=== PATIENT | female | born 1955 | race Caucasian/White ===

== ENCOUNTER 2022-01-10 10:12 | Emergency (ER) | payer MEDICARE, OTHER, SELFPAY ==
--- NOTE | ~2022-01-10 | CT_ITS ---
EXAMINATION: CT BRAIN W/O DATE: 01/10/2022 11:54 INDICATION: Dizziness TECHNIQUE: Computed tomography (CT) of the head was performed without intravenous contrast. The dose- length product was 605.33 mGy-cm. Automated exposure control and iterative reconstruction technique w ere employed. COMPARISON: No prior studies for comparison. FINDINGS: Normal brain parenchymal volume for age. Normal hartman-white differentiation. No acute intrac ranial hemorrhage, infarction, mass or mass effect. No ventriculomegaly or midline shift. Midline sagittal images demonstrate a normal corpus callosum, c raniovertebral junction and sella turcica. Basilar cisterns are patent. Paranasal sinuses and mastoids are pneumatized. No depressed skull fractures. There is intracranial a therosclerosis. IMPRESSION: 1. No acute intracranial abnormality. Reviewed, dictated and finalized at location A.
--- NOTE | 2022-01-10 10:25 | ECG_ITS ---
Measurements Intervals [place] Rate: 74 P: -48 CT: 155 QRS: 48 QRSD: 85 T: 31 QT: 408 QTc: 454 Interpretive Statements ECTOPIC ATRIAL RHYTHM BORDERLINE T WAVE ABNORMALITY- ANT/INF LEADS BASELINE ARTIFACT- I, II, III, AVL, AVF ABNORMAL ECG Electronically Signed On 01-10-2022 14:14:14 CDT by Khalif Rob D.O.
[2022-01-10 10:33] VITALS: BP 126/79; PULSE 65; RESP 18; TEMP 36.6; O2SAT 100
[2022-01-10 10:37] LABS: Basophils Absolute Auto 0.1 K/mm3 (0.0-0.1); Eosinophils Absolute Auto 0.1 K/mm3 (0-0.3); Eosinophils Percent Auto 1.4 % (0-4.4); Immature Granulocyte Absolute 0.07 K/mm3 (0.00-0.031); Immature Granulocyte Percent A 0.8 % (0-0.5); Lymphocytes Absolute Auto 3.04 K/mm3 (0.9-3.2); Lymphocytes Percent Auto 33.6 % (18.3-44.2); Mean Corpuscular HGB Conc 34.1 g/dl (32-36); Mean Corpuscular Volume 96.7 fl (80-100); Mean Platelet Volume 9.9 fl (7.4-10.4); Monocytes Absolute Auto 0.9 K/mm3 (0.1-0.6); Monocytes Percent Auto 9.5 % (2.6-8.5); Neutrophils Absolute Auto 4.9 K/mm3 (1.3-6.7); Neutrophils Percent Auto 53.7 % (45.5-73.1); Platelet Count Result 283 k/mm3 (150-375); Red Blood Count 4.55 M/mm3 (4.2-5.4); Red Cell Distribution Width 12.4 % (11.5-14.5); White Blood Count 9.1 K/mm3 (4.5-10.0)
--- NOTE | 2022-01-10 10:49 | ED.DIZZY ---
HPI - Dizziness General Chief Complaint: Dizziness Stated Complaint: dizziness Time Seen by Provider: 01/10/22 10:29 Source: patient Mode of arrival: ambulatory Limitations: no limitations History of Present Illness HPI Narrative: Patient is a 66-year-old female who presents to the ED with report of dizziness. Patient reports she was getting ready to go on a bike ride approximately 45 minutes ago when she suddenly developed room spinning dizziness. She states she became very nauseous and began vomiting with the dizziness. She felt very off balance at that time and decided to come to the ED. She states over the last couple weeks she has been having intermittent dizzy spells, but nothing like this. She has had intermittent pain in her left ear and was seen in urgent care and told it was fluid behind her ear. She has been taking Claritin for this, but still reports having intermittent pain in her left ear. No pain in right ear. No headache, blurry vision, double vision, hematemesis, abdominal pain, chest pain, difficulty breathing, fever, chills, cough, cold symptoms, urinary symptoms, focal weakness. Related Data Allergies Allergy/AdvReac Type Severity Reaction Status Date / Time carbamazepine [From Tegretol] AdvReac Rash Verified 01/10/22 10:39 NSAIDS (Non-Steroidal AdvReac Other Verified 01/10/22 10:39 Anti-Inflamma Intysni-VND-TaV Reductase AdvReac Muscle Pain Verified 01/10/22 10:39 Inhibitor Review of Systems Review of Systems: CONSTITUTIONAL: Denies fever, chills, or sweats. EYES: Denies visual changes. ENT: Reports left otalgia. Denies rhinorrhea, congestion, sore throat. CARDIOVASCULAR: Denies chest pain, palpitations, or edema. RESPIRATORY: Denies cough or dyspnea. GASTROINTESTINAL: Reports nausea and vomiting. Denies abdominal pain, hematemesis, or diarrhea. GENITOURINARY: Denies dysuria or hematuria. MUSCULOSKELETAL: Denies back pain, joint pain, or myalgia. NEUROLOGIC: Reports room spinning dizziness. Denies headache, numbness, or focal weakness. All systems reviewed & are unremarkable except as noted in HPI and below PMFSH Past Medical History Medical History (Updated 01/11/22 @ 00:00 by Anders Johns) Atopic dermatitis Hypercholesterolemia Hypertension Pacemaker Surgical History Surgical History (Updated 01/10/22 @ 18:29 by Kennedi Roblero PA-C) History of permanent cardiac pacemaker placement Social History Social History (Updated 01/10/22 @ 10:53 by Kennedi Roblero PA-C) Smoking status: Never smoker Exam Narrative: GENERAL: Mildly ill appearing, well-nourished, non-toxic, in mild acute distress. HEAD: Normocephalic, atraumatic. EYES: PERRL/EOMI, conjunctivae clear bilaterally. Left-sided nystagmus. NOSE: Normal, no drainage. EARS: Left TM clear but appears to have serous fluid behind. No erythema. Minimal erythema to right EAC, R TM clear. No tenderness to palpation of tragus or manipulation of pinna on R ear. NECK: Supple. No adenopathy, no masses. No TTP. RESPIRATORY: Airway patent, respirations nonlabored. Clear to auscultation bilaterally, no rales, rhonchi, wheezing. CARDIOVASCULAR: Regular rate and rhythm without murmurs, rubs, or gallops. Radial pulses 2+ and equal bilaterally. ABDOMINAL: Soft, nontender, nondistended, no hepatosplenomegaly. Normoactive BS. MUSCULOSKELETAL: Moves all extremities. Strength/ROM intact without gross deformities. SKIN: Warm, dry, normal color. No rashes. NEURO: A&O X3. Speech clear. Follows commands. CN II-XII intact. Sensation grossly intact. Steady gait. No ataxic movements. Strength 5/5 in upper and lower extremities bilaterally. [id number]-[id number] and nzxxtn-ej-[id number] testing intact bilaterally. No pronator drift. PSYCHIATRIC: Appropriate mood and affect. Normal interaction. Course Vital Signs Vital signs: Vital Signs Temperature 97.8 F 01/10/22 10:33 Pulse Rate 65 01/10/22 10:33 Respiratory Rate 18 01/10/22 10:33 Blood Pressur
[2022-01-10 10:51] LABS: Alanine Aminotransferase 23 U/L (6-35); Albumin Level 4.3 g/dL (3.5-5.1); Alkaline Phosphatase 126 U/L (38-126); Anion Gap 8 mmol/L (8-16); Aspartate Amino Transferase 28 U/L (14-36); Bilirubin,Total 0.6 mg/dL (0.2-1.3); Blood Urea Nitrogen 13 mg/dL (7-17); Calcium 9.4 mg/dL (8.4-10.2); Carbon Dioxide 23 mmol/L (22-30); Chloride 106 mmol/L (98-107); Estimated CRCL calculation 43 ml/min; Estimated Glomerular Filt Rate > 60; Glucose 111 mg/dL (65-110); Potassium 4.1 mmol/L (3.4-5.0); Sodium 137 mmol/L (137-145)
[2022-01-10] MEDS: SODIUM CHLORIDE 0.9% IV 1,000 ML 999 ML IV CONT (11:05)
[2022-01-10] MEDS: MECLIZINE HCL 25 MG TABLET PO (11:05)
[2022-01-10] MEDS: ONDANSETRON INJ 4 MG/2 ML VIAL IV PUSH (11:05)
[2022-01-10 12:06] VITALS: BP 126/74; BP 133/74; PULSE 63; PULSE 81
--- NOTE | 2022-01-10 12:07 | PC.NURSE ---
Pt was unable to stand to complete orthostatic blood pressure. EDP made aware of this.
[2022-01-10] MEDS: diazePAM INJ (*CRX) 10 MG/2 ML SYRINGE 2.5 MG IV PUSH (12:30)
[2022-01-10 14:08] VITALS: BP 130/70; PULSE 61; RESP 18; O2SAT 99
[2022-01-10 14:49] VITALS: BP 123/71; PULSE 65
[2022-01-10 14:50] VITALS: BP 124/77; BP 125/77; PULSE 60; PULSE 67
== END 2022-01-10 15:40 | disposition home or self-care (01) ==
PROVIDERS: Emergency Provider Emergency Medicine; PCP Internal Medicine
DX: R42 Dizziness and giddiness (principal); H92.02 Otalgia, left ear; I10 Essential (primary) hypertension
CPT/HCPCS: 36415; 70450; 80053; 85025; 93005; 96361; 96374; 96375; 99284; A9270; J2405; J3360; J7030